=== PATIENT | male | born 1940 | race Caucasian/White ===

== ENCOUNTER 2016-07-31 12:51 | Inpatient (IN) | payer OTHER, BC ==
[~2016-07-31] VITALS: Ht 177.8 cm; Wt 87.5 kg
[2016-07-31 13:38] LABS: EOSINOPHIL (%) 2.2 % (0-5); EOSINOPHIL COUNT 0.2 K/uL (0-0.3); HEMATOCRIT 46.2 % (38.0-50.0); IMMATURE GRANULOCYTE (%) 0.1 % (0.0-0.7); IMMATURE GRANULOCYTE COUNT 0.1 K/uL; LYMPHOCYTE COUNT 1.7 K/uL (1.0-2.8); MCH 30.1 PG (29.0-34.0); MCHC 34.4 G/DL (30.0-36.0); MCV 87.5 FL (86-99); MEAN PLAT.VOLUME 10.5 uM^3 (9.0-12.4); MONOCYTE (%) 6.9 % (3-12); MONOCYTE COUNT 0.6 K/uL (0-0.8); NEUTROPHIL (%) 69.7 % (45-76); NEUTROPHIL COUNT 5.7 K/uL (1.8-6.4); PLATELET COUNT 214 K/uL (156-360); RBC DIS.WIDTH-CV 13.2 % (11.8-14.6); RED BLOOD COUNT 5.28 M/uL (4.00-5.50); WHITE BLOOD COUNT 8.2 K/uL (4.1-10.2)
[2016-07-31 13:48] LABS: PROTHROMBIN TIME 10.3 (9.2-11.2); PTT 28.3 (25-32)
[2016-07-31 13:50] LABS: CHLORIDE 105 mEq/L (99-109); POTASSIUM 3.9 mEq/L (3.7-5.4); SODIUM 140 mEq/L (136-147)
[2016-07-31 13:51] LABS: GLUCOSE 114 mg/dL (70-99)
[2016-07-31 13:53] LABS: ANION GAP 9 MEQ/L (2-14)
[2016-07-31 13:56] LABS: UREA NITROGEN (BUN) 19 mg/dL (9-23)
[2016-07-31 13:58] LABS: TROP-I INTERPRETATION NEGATIVE; TROPONIN-I 0.01 ng/mL (0.0-0.30)
[2016-07-31 14:06] LABS: GFR ESTIMATE (CALCULATED) > 59 mL/min/
[2016-07-31] MEDS ORDERED: METOPROLOL SUCC25 MG PO (15:36)
[2016-07-31] MEDS ORDERED: PROTONIX40 MG PO (15:36)
[2016-07-31] MEDS ORDERED: LIPITOR40 MG PO (15:36)
[2016-07-31] MEDS ORDERED: LO-DOSE ASPIRIN81 M2 PO (15:36)
[2016-07-31] MEDS ORDERED: ALPRAZOLAM0.5 MG PO ×2 (15:36)
[2016-07-31] MEDS ORDERED: MICARDIS HCT1 TABLET PO (15:36)
[2016-07-31] MEDS ORDERED: NITROSTAT0.4 MG SL (15:37)
[2016-07-31] MEDS ORDERED: ZANTAC75 M1 PO (15:37)
[2016-07-31] MEDS ORDERED: ADVAIR 500/501 DISK IH (15:37)
[2016-07-31] MEDS ORDERED: DESOXIMETASONE15 G1 TP (15:37)
[2016-07-31 16:58] LABS: TROP-I INTERPRETATION NEGATIVE; TROPONIN-I < 0.01 ng/mL (0.0-0.30)
[2016-07-31 21:16] VITALS: BP 119/68
[2016-08-01] VITALS (8 sets, daily range): BP systolic 111–153; BP diastolic 66–84
[2016-08-01 00:58] LABS: TROP-I INTERPRETATION NEGATIVE; TROPONIN-I < 0.01 ng/mL (0.0-0.30)
[2016-08-01 04:44] LABS: MCH 30.3 PG (29.0-34.0); MCHC 34.7 G/DL (30.0-36.0); MCV 87.6 FL (86-99); MEAN PLAT.VOLUME 11.2 uM^3 (9.0-12.4); PLATELET COUNT 212 K/uL (156-360); RBC DIS.WIDTH-CV 13.3 % (11.8-14.6); RBC DIS.WIDTH-SD 41.6 % (39-53); RED BLOOD COUNT 4.91 M/uL (4.00-5.50); WHITE BLOOD COUNT 8.1 K/uL (4.1-10.2)
[2016-08-01 04:56] LABS: CHLORIDE 106 mEq/L (99-109); POTASSIUM 3.6 mEq/L (3.7-5.4); SODIUM 141 mEq/L (136-147)
[2016-08-01 04:58] LABS: GLUCOSE 99 mg/dL (70-99)
[2016-08-01 04:59] LABS: ANION GAP 8 MEQ/L (2-14)
[2016-08-01 05:02] LABS: GFR ESTIMATE (CALCULATED) > 59 mL/min/; UREA NITROGEN (BUN) 19 mg/dL (9-23)
[2016-08-02 03:43] VITALS: BP 108/59
[2016-08-02 08:02] VITALS: BP 136/73
[2016-08-02] MEDS ORDERED: IMDUR30 MG PO (12:28)
== END 2016-08-02 14:21 | disposition home or self-care (01) | DRG 287 ==
LOC: EME 12:51 → EDOF 16:03 → 5WEST 16:03 → EDOF 16:03 → 5WEST 20:33 → 4EAST 08-01 19:26
PROVIDERS: Emergency Medicine; Internal Medicine
DX: I25.110 Atherosclerotic heart disease of native coronary artery with unstable angina pectoris (principal); I24.9 Acute ischemic heart disease, unspecified; I10 Essential (primary) hypertension; E78.5 Hyperlipidemia, unspecified; Z95.5 Presence of coronary angioplasty implant and graft; K21.9 Gastro-esophageal reflux disease without esophagitis; F41.9 Anxiety disorder, unspecified
CPT/HCPCS: 71020; 80048; 84484; 85025; 85027; 85610; 85730; 87493; 93005; 94640; 94640 76; 99281; 99285; C1769; C1887; G0378; J1644; J2250; J3010; J7040; J7050